=== PATIENT | male | born 1990 | race African-American/Black ===

== ENCOUNTER 2019-04-21 11:21 | Emergency (ER) | payer SELFPAY ==
[~2019-04-21] VITALS: Ht 177.8 cm; Wt 64.0 kg
[2019-04-21 15:30] LABS: BASOPHILS % 0.4 % (0.0-2.0); EOSINOPHILS % 0.1 % (0.0-5.0); HEMOGLOBIN. 13.7 g/dL (14.0-18.0); LYMPHOCYTES % 12.4 % (20.0-50.0); MEAN CORPUSCULAR HEMOGLOBIN 29.3 pg (28.0-32.0); MEAN CORPUSCULAR VOLUME 87.7 fL (80.0-94.0); MEAN PLATELET VOLUME 9.5 fl (7.4-10.4); MONOCYTES % 10.5 % (2.0-8.0); NEUTROPHILS % 76.6 % (40.0-76.0); PLATELET 150 x1000/uL (130-400); RED BLOOD CELL COUNT 4.68 mill/uL (4.7-6.1); RED CELL DISTRIBUTION WIDTH 14.1 % (11.6-14.6)
[2019-04-21 15:37] LABS: CHLORIDE 101 mEq/L (98-107)
[2019-04-21 16:37] VITALS: BP 124/72
== END 2019-04-21 16:39 | disposition home or self-care (01) ==
LOC: ER 11:21
DX: B34.9 Viral infection, unspecified (principal); M60.9 Myositis, unspecified
CPT/HCPCS: 36415; 80048; 85025; 87804; 99283